=== PATIENT | female | born 1995 | race Caucasian/White ===

== ENCOUNTER 2025-03-30 18:51 | Emergency (ER) | payer OTHER, SELFPAY ==
--- NOTE | ~2025-03-30 | XR_ITS ---
CHEST RADIOGRAPH, PA AND LATERAL CLINICAL HISTORY: right lower rib pain . COMPARISON: None available TECHNIQUE: PA and lateral views of the chest. FINDINGS The cardiomediastinal silhouette is unremarkable. The lungs are clear. IMPRESSION: No focal infiltrate or effusion. Reviewed, dictated and finalized at location A.
--- NOTE | ~2025-03-30 | CT_ITS ---
CLINICAL INDICATION: Right upper quadrant pain and diarrhea COMPARISON: 04/28/2014. TECHNIQUE: Multiple contiguous axial images of the abdomen and pelvis were performed following the ad ministration of with 100 mL Omnipaque-350 intravenous contrast The dose-length product (DLP) was 492.80 mGy-cm. Automated exposure control and iterative reconstruction technique were employed. FINDINGS/OBSERVATIONS: Visualized lower thorax: The bilateral lung bases are clear. The heart is of normal size, without pericardial effusion. Small hiatal hernia is present. Liver: The liver demonstrates homogeneous enhancement and is not enlarged. Gallbladder and biliary system: The gallbladder is only minimally distended, and otherwise unremarkable. Pancreas: The pancreas enhances homogeneously without ductal dilatation. Spleen: The spleen enhances homogeneously and is not enlarged. Kidneys: 9 mm focus of decreased attenuation within the upper pole of the left kidney, not present on the previous examination performed more than 10 years earlier. This is too small to characterize on the current study for which dedicated ultrasound may be performe d (nonemergently) for confirmation of its benignity. If unable to visualize this area with ultrasound , contrast-enhanced MRI is recommended with renal mass protocol. The remainder of the bilateral kidneys otherwise enhance symmetrically without hydronephrosis or hank l calculi. Adrenal glands: Unremarkable. Gastrointestinal tract: Colonic diverticulosis without surrounding inflammatory change. Appendix: The air-filled appendix is of normal caliber (axial series, images 123 - 133) Vasculature: Unremarkable. Lymph nodes: No pathologically enlarged or morphologically suspicious lymph nodes within the retroperitoneum or at the root of the mesentery. Pelvic structures: The bladder is only minimally distended, limiting its evaluation The uterus is anteverted and anteflexed, and otherwise unremarkable. Body wall and musculoskeletal: Small fat-containing umbilical hernia. No significant degenerative disease within the lower thoracic or lumbosacral spine. No lower rib fracture identified. IMPRESSION: No abnormality is detected within the right upper quadrant to account for patient's pain. Interval development of a 9 mm focus of decreased attenuation within the upper pole of the left kidne y, not present on the previous study for which nonemergent focused ultrasound may be performed for co nfirmation of its benignity. If unable to visualize with ultrasound, contrast-enhanced MRI is suggested with renal mass protocol. Reviewed, dictated and finalized at location A. IMPRESSION: No abnormality is detected within the right upper quadrant to account for patie nt's pain. Interval development of a 9 mm focus of decreased attenuation within the upper pole of the left kidney, not present on the previous study for which nonemergen t focused ultrasound may be performed for confirmation of its benignity. If unable to visualize with ultrasound, contrast-enhanced MRI is suggested with renal mass protocol.
--- OUTSIDE RECORDS SUMMARY | 2025-03-30 18:53 | XMS_ITS | Continuity of Care Document ---
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 Name Role Phone Roger [facility] Unavailable Unavailabl e Allergies, Adverse Reactions, Alerts Substance Reaction Status Criticality No Known Allergies Active No Inform ation Medications Medication Instructions Dosage Effective Dates (start - stop) Status Comments TRI-SPRINTEC TABLETS 28S TAKE 1 TABLET BY MOUTH EVERY DAY - Active Ortho Tri-Cyclen (28) 0.18 mg(7)/0.215 mg(7)/0.25 mg(7)-35 mcg tablet take 1 tablet by oral route every day 1.00 tablet - No Longer Active Ortho Tri-Cyclen, may sub generic Procedures Procedure Date URINE TEST, BY VISUAL [facility] MPARISON METHODS REMOVAL OF INTRAUTERINE DEVICE (IUD) Jan PERIODIC COMPREHENSIVE PREVENTIVE MED RE E/M; ESTABLISHED PATIENT; 18-39 Alcohol and/or drug screening 4 1ST COMPRE PREV MED E/M NEW PT 18-39 Jun OFFICE/OUTPATIENT VISIT, EST Alcohol and/or drug screening 2 URINE TEST, BY VISUAL [facility] MPARISON METHODS Advance Directives Directive Yes / No Effective Date File Name No Information Encounters Encounter Description Practice Location Reason(s) For Visit Diagnoses Date Provider Providers Copied on Encounter [facility], [address], [place], [place], [id number] , [place] tel: [phone] [facility] No Information summer. [address], [place], [place], [address] , . tel: [phone] [facility], [address], [place], [place], [address] , tel: [phone] [facility] No Information summer. [address], [place], [place], [address] , [place]. tel: [phone] PERIODIC COMPREHENSIVE PREVENTIVE MED REE/M; ESTABLISHED PATIENT; 18-39 [facility], [address], [place], [place], [address] , tel: [phone] [facility] annual exam (chief complaint) hx (chief complaint) Body mass index (BMI) 33.0-33.9, adultEncounter for gynecological examination (general) (routine) without abnormal findingsEncounter for removal of intrauterine contraceptive deviceEncntr screen for infections w sexl mode of transmissEncounter for screening for HIVEncounter for initial prescription of contraceptive pillsEncounter for oth screening for malignant neoplasm of breastScreening for cervical cancerDietary counseling and surveillanceTobacco abuse counselingObesity, unspecifiedEncounte r for screening for other disorder summer. [address], [place], [place], [address] , . tel: [phone] Referring Provider: Shannon Duran, [address], [place], [address] . tel:[phone] 1ST COMPRE PREV MED E/M NEW PT 18-39 [facility], [address], [place], [place], [address] , [place] tel: [phone] [facility] [place] annual (chief complaint) Body mass index (BMI) 29.0-29.9, adultEncounter for routine rod drawer exam w/ abnormal findingUnspecified lump in the left breast, upper outer quadrantEncntr screen for infections w sexl mode of transmissScreening for cervical cancerOverweightEnc ounter for gynecological examination (general) (routine) without abnormal findingsEncounter for screening for other disorder Tammy-Ti Moon. [address], [place], [place], [address] , [place]. tel: [phone] Referring Provider: Sarai Munoz-May hardy, [address], [place], [address] . tel:[phone] Family History Family Member Type Diagnosis Age At Onset Father Problem stroke 39 Problem No family history of Cancer, breast Mother Problem Mental illness Problem No family history of Cancer, colon Problem No family history of Cancer, ovarian Payers Payer name Insurance type Covered republican ID Authoriza tiluis(s) [employer] [id number] Social History Type Description Quantity Date Captured Comments Alcohol Use Details Unknown Caffeine Use Details Unknown Tobacco Use Status No Information Smoking Status No Information Sex Female Sexual Orientation Straight or heterosexual Jun Gender Identity Female Chief Complaint And Reason For Visit No Information Reason For Referral Reason For Referral No Information Plan Of Treatment Date Type Action Status Referral Referred To: [facility] [address] [place] [address]
[address] Floor, [place], [phone] Ordered: Referrals: Mammography Screening and Diagnostic. [facility] Breast [facility]. Diagnostic testing Appointment date/timeframe: 09/02/2022 ordered Appointment Prince Jaramillo BOOKED Nutrition Recommendation Nutrition therap y completed Nutrition Recommendation Nutrition therap y completed History Of Present Illness Encounter Date Complaint History Of Prese nt Illness hx 29 y/o G0 here f or AnnualLMP amenorrheic with LNG-IUD, Last 06/2022 NIL, next due 06/2025 reports h/o abnormal with colpo and resolved on f/uH/o CT, desires testingSA, one male partner x 3 yearsMOC - LNG-IUD (05/2020), desires removals/p Gardasils/p COVID VaccineH/o Anxiety - no meds annual exam The client state s using IUD, Mirena for control. Patient's menses is absent. Negative for: breast discharge, breast lump(s) and breast pain. Positive for: breast self exam. Associated symptoms include anxiety and depression. Pertinent negatives include urinary incontinence, urinary urgency and vaginal discharge. Client does not take calcium. Client does not take Vitamin D. Client does take multivitamins. Client does not take Folic acid. The client does not use tobacco. The client does drink alcohol. annual 27 y/o G0 here f or new patient annual exam. C/o left lateral breast tenderness and palpable indistinct mass x 2 weeks. States tenderness has improved, but still self-palpates firmness in the area. Denies recent trauma. No skin change, no nipple d/c. Notes some LAD in right axilla which has improved over the past week. No significant family history of malignancy.LMP amenorrheic with LNG-IUD, notes occasional spotting particularly after IC on occasionLast pap ?1-2 years ago, believes to be normal, reports h/o abnormal with colpo and resolved on f/uH/o CTSA, one male partner x 3 yearsMOC - LNG-IUD (05/2020)s/p GardasilH/o Anxiety - no meds Functional Status Date Functional Assessmen t No Information Instructions Date Instruction Additional Infor elizabet Prescribed activity/ exercise education Related to Body mass index [BMI] 33.0-33.9, adult Reviewed breast self awareness R elated to Encounter for routine rod drawer exam w/ abnormal finding Increase fruits, veg etables and fiber in your diet Related to Encounter for routine rod drawer exam w/ abnormal finding Increase daily activity Related to Encounter for routine rod drawer exam w/ abnormal finding Discussed Nutrition and Physical Activity Related to Overweight Prescribed activity/ exercise education Related to Body mass index [BMI] 29.0-29.9, adult Assessments Type Assessment Date No Information Patient Care Teams Name Effective Dates (start - stop) Status Members No Information
[2025-03-30 19:00] VITALS: BP 148/85; PULSE 108; RESP 16; TEMP 36.3; O2SAT 100
[2025-03-30 19:43] LABS: Hematocrit 40.3 % (37.0-47.0); Hemoglobin 13.4 g/dL (12.0-15.0); Immature Granulocyte Percent A 0.3 % (0-0.5); Lymphocytes Absolute Auto 3.36 K/mm3 (0.9-3.2); Mean Corpuscular HGB Conc 33.3 g/dl (32-36); Mean Corpuscular Hemoglobin 28.7 pg (26-34); Mean Corpuscular Volume 86.3 fl (80-100); Nucleated Red Blood Cells Absolute Auto 0.000 K/mm3 (0.0-0.012); Nucleated Red Blood Cells Perc 0.0 % (0.0-0.2); Platelet Count Result 302 k/mm3 (150-375); Red Blood Count 4.67 M/mm3 (4.2-5.4); White Blood Count 8.8 K/mm3 (4.5-10.0)
--- NOTE | 2025-03-30 19:46 | ED.NAVMDI ---
HPI - Nausea/Vomiting/Diarrhea General Chief complaint: Nausea/Vomiting/Diarrhea Stated complaint: diarrhea x 3 weeks, Abd pain, N/V Time Seen by Provider: 03/30/25 19:24 History of Present Illness HPI Narrative: 30-year-old female presenting to the emergency department for subacute to chronic complaints including right upper quadrant pain intermittent for last 8 months as well as 3 weeks of nausea and loose watery diarrhea. She attributed to digestive issues but has not sought medical attention for this. She thought she may have had a gallstone past several months ago and that she has been having intermittent right upper quadrant pain since. Endorses subjective fever and chills today which is why she came to the emergency department. Patient has any chest pain or shortness of breath, no traumatic injuries. States that she seen a chiropractor for her right-sided upper quadrant pain and had a ?rib adjustments ?that made her feel better. No new medications and she has tried some probiotics but still having loose stools. She states that her stools are very loose and associated some burning. She states she has also been having worsening GERD symptoms for last week despite omeprazole therapy. Related Data Allergies Allergy/AdvReac Type Severity Reaction Status Date / Time No Known Allergies Allergy Unverified 03/30/25 19:05 Review of Systems Review of Systems: As reviewed above in HPI Exam Narrative: GENERAL: [Well-appearing, well-nourished, and in no acute distress.] HEAD: [Normocephalic, atraumatic.] EYES: [PERRLA and EOMI.] ENT: Nares clear, no rhinorrhea or epistaxis. Mucous membranes dry. NECK: Supple. CHEST: [Clear to auscultation. No respiratory distress.] HEART: [Regular rate and rhythm]. No murmur heard. [Normal peripheral pulses.] ABDOMEN: [Soft, nondistended], mildly reproducible pain in the right upper quadrant with palpation no signs of peritonitis or lower abdominal pain on palpation, [No rigidity or guarding] EXTREMITIES: Normal range of motion. [No edema.] SKIN: Warm, dry, no rash. NEURO: [No focal deficits]. Alert and oriented [x3.] PSYCH: [Normal mood and affect.] Course Vital Signs Vital signs: Vital Signs Temperature 36.3 C L 03/30/25 19:00 Pulse Rate 108 H 03/30/25 19:00 Respiratory Rate 16 03/30/25 19:00 Blood Pressure 148/85 H 03/30/25 19:00 Pulse Oximetry 100 03/30/25 19:00 Oxygen Delivery Room Air 03/30/25 19:00 Temperature 36.3 C L 03/30/25 19:00 Pulse Rate 83 03/31/25 00:04 Respiratory Rate 15 03/31/25 00:04 Blood Pressure 118/76 03/31/25 00:04 Pulse Oximetry 99 03/31/25 00:04 Oxygen Delivery Room Air 03/30/25 19:00 MDM - Nausea/Vomiting/Diarrhea MDM Narrative Medical decision making narrative: 30-year-old female presenting to the emergency department for subacute to chronic complaints including right upper quadrant pain intermittent for last 8 months as well as 3 weeks of nausea and loose watery diarrhea. She attributed to digestive issues but has not sought medical attention for this. She thought she may have had a gallstone past several months ago and that she has been having intermittent right upper quadrant pain since. Endorses subjective fever and chills today which is why she came to the emergency department. Patient has any chest pain or shortness of breath, no traumatic injuries. States that she seen a chiropractor for her right-sided upper quadrant pain and had a ?rib adjustments ?that made her feel better. No new medications and she has tried some probiotics but still having loose stools. She states that her stools are very loose and associated some burning. She states she has also been having worsening GERD symptoms for last week despite omeprazole therapy. Patient is mildly tachycardic but overall well-appearing not any acute distress. Minimally reproducible tenderness in the right upper quadrant near the gallbladder area but negative Magana sign. No signs of peritonitis. Mild dehydration on clinical exam. Given patient's subacute to chronic nature of symptoms going on for weeks to months unclear if there is any acute emergent concerns today but with her subjective fever and chills could be potential etiology such as intra-abdominal infection such as cholecystitis less likely cholangitis, hepatitis. Possibility of GERD, likely deficiencies, gastroenteritis, appendicitis or diverticulitis less likely. Right upper quadrant ultrasound laboratory studies were obtained, she was given Zofran, Bentyl and fluids and re-evaluated. Workup was reassuring. No leukocytosis or anemia. Normal platelet count. Normal electrolytes and renal function. Normal hepatic function. Normal lipase. Urinalysis negative for , negative for any signs of infection. Chest x-ray shows no infiltrates or effusion. CT scan shows no abnormality in the right upper quadrant, she has a left kidney upper pole foci that needs outpatient follow-up with ultrasound or MRI. Patient was made aware of this with instructions for outpatient follow-up with her PCP but not related to her symptomatology here today with no emergent concerns found on workup. Patient is hemodynamically stable, improved after symptom control medications here. Will be sent home with Bentyl and Zofran as needed and follow-up instructions with the GI doctor as well as her PCP regarding her CT finding. Medical Records Attestation: I reviewed the patient's medical records. Lab Data Attestation: I reviewed the patient's lab results. 03/30/25 19:38 03/30/25 19:38 Labs: Lab Results 03/30/25 03/30/25 03/30/25 Range/Units 19:38 20:30 20:38 WBC 8.8 (4.5-10.0) K/mm3 RBC 4.67 (4.2-5.4) M/mm3 Hgb 13.4 (12.0-15.0) g/dL Hct 40.3 (37.0-47.0) % MCV 86.3 (80-100) fl MCH 28.7 (26-34) pg MCHC 33.3 (32-36) g/dl RDW 12.4 (11.5-14.5) % Plt Count 302 (150-375) k/mm3 MPV 9.7 (7.4-10.4) fl Immature Gran % (Auto) 0.3 (0-0.5) % Neut % (Auto) 53.3 (45.5-73.1) % Lymph % (Auto) 38.3 (18.3-44.2) % Woodruff % (Auto) 6.2 (2.6-8.5) % Eos % (Auto) 1.4 (0-4.4) % Baso % (Auto) 0.5 (0.2-1.2) % Lymph # (Auto) 3.36 H (0.9-3.2) K/mm3 Woodruff # (Auto) 0.5 (0.1-0.6) K/mm3 Eos # (Auto) 0.1 (0-0.3) K/mm3 Baso # (Auto) 0.0 (0.0-0.1) K/mm3 Abs Immat Gran (auto) 0.03 (0.00-0.031) K/mm3 Absolute Neuts (auto) 4.7 (1.3-6.7) K/mm3 Absolute Nucleated RBC 0.000 (0.0-0.012) K/mm3 Nucleated RBC % 0.0 (0.0-0.2) % Sodium 137 (137-145) mmol/L Potassium 3.8 (3.4-5.0) mmol/L Chloride 102 (98-107) mmol/L Carbon Dioxide 24 (22-30) mmol/L Anion Gap 11 (4-12) mmol/L BUN 11 (7-17) mg/dL Creatinine 0.71 (0.7-1.0) mg/dL Estim Creat Clear Calc 102 ml/min Estimated GFR > 60 (59 - ) Glucose 92 (65-110) mg/dL Calcium 9.9 (8.4-10.2) mg/dL Total Bilirubin 0.5 (0.2-1.3) mg/dL AST 34 (14-36) U/L ALT 18 (6-35) U/L Alkaline Phosphatase 65 (38-126) U/L Total Protein 8.3 H (6.3-8.2) g/dL Albumin 4.8 (3.5-5.1) g/dL Lipase 186 (23-300) U/L Urine Color (Yellow) Urine Appearance (Clear) Urine pH (5.0-9.0) Ur Specific [place] (1.001-1.035) Urine Protein (Negative) mg/dL Urine Glucose (UA) (Negative) mg/dL Urine Ketones (Negative) mg/dL Ur Blood (Man) (Negative) Urine Nitrate (Negative) Urine Bilirubin (Negative) Urine Urobilinogen (<2.0) mg/dL Leukocyte Esterase Rfl (Negative) NATE/UL POC Urine HCG, Qual Negative (Negative) Urine Test Negative 03/30/25 Range/Units 20:39 WBC (4.5-10.0) K/mm3 RBC (4.2-5.4) M/mm3 Hgb (12.0-15.0) g/dL Hct (37.0-47.0) % MCV (80-100) fl MCH (26-34) pg MCHC (32-36) g/dl RDW (11.5-14.5) % Plt Count (150-375) k/mm3 MPV (7.4-10.4) fl Immature Gran % (Auto) (0-0.5) % Neut % (Auto) (45.5-73.1) % Lymph % (Auto) (18.3-44.2) % Woodruff % (Auto) (2.6-8.5) % Eos % (Auto) (0-4.4) % Baso % (Auto) (0.2-1.2) % Lymph # (Auto) (0.9-3.2) K/mm3 Woodruff # (Auto) (0.1-0.6) K/mm3 Eos # (Auto) (0-0.3) K/mm3 Baso # (Auto) (0.0-0.1) K/mm3 Abs Immat Gran (auto) (0.00-0.031) K/mm3 Absolute Neuts (auto) (1.3-6.7) K/mm3 Absolute Nucleated RBC (0.0-0.012) K/mm3 Nucleated RBC % (0.0-0.2) % Sodium (137-145) mmol/L Potassium (3.4-5.0) mmol/L Chloride (98-107) mmol/L Carbon Dioxide (22-30) mmol/L Anion Gap (4-12) mmol/L BUN (7-17) mg/dL Creatinine (0.7-1.0) mg/dL Estim Creat Clear Calc ml/min Estimated GFR (59 - ) Glucose (65-110) mg/dL Calcium (8.4-10.2) mg/dL Total Bilirubin (0.2-1.3) mg/dL AST (14-36) U/L ALT (6-35) U/L Alkaline Phosphatase (38-126) U/L Total Protein (6.3-8.2) g/dL Albumin (3.5-5.1) g/dL Lipase (23-300) U/L Urine Color Yellow (Yellow) Urine Appearance Clear (Clear) Urine pH 7.5 (5.0-9.0) Ur Specific [place] 1.017 (1.001-1.035) Urine Protein Negative (Negative) mg/dL Urine Glucose (UA) Negative (Negative) mg/dL Urine Ketones Trace H (Negative) mg/dL Ur Blood (Man) Negative (Negative) Urine Nitrate Negative (Negative) Urine Bilirubin Negative (Negative) Urine Urobilinogen 0.2 (<2.0) mg/dL Leukocyte Esterase Rfl Negative (Negative) NATE/UL POC Urine HCG, Qual (Negative) Urine Test Imaging Data Attestation: I personally reviewed and interpreted this imaging study as follows: My impression: Impressions Chest X-Ray 03/30/25 20:27 IMPRESSION: No focal infiltrate or effusion. Abdomen/Pelvis CT 03/30/25 22:48 IMPRESSION: No abnormality is detected within the right upper quadrant to account for patient's pain. Interval development of a 9 mm focus of decreased attenuation within the upper pole of the left kidney, not present on the previous study for which nonemergent focused ultrasound may be performed for confirmation of its benignity. If unable to visualize with ultrasound, contrast-enhanced MRI is suggested with renal mass protocol. Discharge Plan Discharge Clinical Impression: Nausea, vomiting, and diarrhea, Abnormal CT scan, kidney Patient Disposition: Home Condition: Stable Instructions: Antibiotic Form, Acute Nausea and Vomiting (ED) Additional Instructions: Your laboratory studies here were reassuring with no signs of active infection, electrolyte deficiencies or dehydration. Your CT scan shows nothing going on with your gallbladder and no acute GI pathology was identified. Your left kidney has a small area of decreased contrast uptake which is not related to anything going on with your symptoms here today and needs an outpatient follow-up with potential ultrasound or MRI on a nonemergent outpatient basis. Speak with your primary care provider during follow-up about this. We will refer you to a GI doctor for evaluation of your symptomatology however no acute urgent or emergent concerns were identified today. We will send you home with some medications that can help with symptoms in the meantime. Patient Language: Wallisian Prescriptions: New dicyclomine 20 mg tablet 20 mg PO TID PRN (Reason: abdominal pain) Qty: 20 0RF ondansetron 4 mg tablet,disintegrating 4 mg PO Q8H PRN (Reason: nausea and vomiting) Qty: 14 0RF Follow-up/Referrals: PHYSICIAN,CONTROL TOWER RADIO OPERATOR [Primary Care Provider] - Sergio Sauceda MD [Physician] - 1 Week (Chronic diarrhea) Time of Disposition: 23:45
[2025-03-30 19:54] LABS: Alanine Aminotransferase 18 U/L (6-35); Albumin Level 4.8 g/dL (3.5-5.1); Alkaline Phosphatase 65 U/L (38-126); Anion Gap 11 mmol/L (4-12); Aspartate Amino Transferase 34 U/L (14-36); Bilirubin,Total 0.5 mg/dL (0.2-1.3); Blood Urea Nitrogen 11 mg/dL (7-17); Calcium 9.9 mg/dL (8.4-10.2); Carbon Dioxide 24 mmol/L (22-30); Chloride 102 mmol/L (98-107); Estimated CRCL calculation 102 ml/min; Estimated Glomerular Filt Rate > 60; Glucose 92 mg/dL (65-110); Lipase 186 U/L (23-300); Potassium 3.8 mmol/L (3.4-5.0); Sodium 137 mmol/L (137-145); Total Protein 8.3 g/dL (6.3-8.2)
--- OUTSIDE RECORDS SUMMARY | 2025-03-30 19:54 | XMS_ITS | Continuity of Care Document ---
Author Organization [facility] Address [address] [place] [address] Phone Care Team Providers Care Dial Buffer Name Role Phone Roger [facility] Unavailable Unavailabl e Allergies, Adverse Reactions, Alerts [...] Encounter [facility], [address], [place], [place], [address] , [place] tel: [phone] [facility] No Information summer. [address], [place], [place], [address] , . tel: [phone] [facility], [address], [place], [place], [address] , tel: [phone] [facility] [place] No Information summer. [address], [place], [place], [address] , [place]. tel: [phone] PERIODIC COMPREHENSIVE PREVENTIVE MED REE/M; ESTABLISHED PATIENT; 18-39 [facility], [address], [place], [place], [address] , tel: [phone] [facility] annual exam (chief complaint) [...] for other disorder summer. [address], [place], [place], [address] , . tel: [phone] Referring Provider: Shannon Duran, [address], [place], [address] . tel:[phone] 1ST COMPRE PREV MED E/M NEW PT 18-39 [facility], [address], [place], [place], [address] , [place] tel: [phone] [facility] [place] annual (chief complaint) Body mass index (BMI) 29.0-29.9, adultEncounter for routine hotel breakfast attendant exam w/ abnormal findingUnspecified lump in the left breast, upper outer quadrantEncntr screen for infections w sexl mode of transmissScreening for cervical cancerOverweightEnc ounter for gynecological examination (general) (routine) without abnormal findingsEncounter for screening for other disorder Tammy-Ti Moon. [address], [place], [place], [address] , [place]. tel: [phone] Referring Provider: Sarai Munoz-May hardy, [address], [place], [address] . tel:[phone] Family History Family Member Type Diagnosis Age At Onset Father Problem stroke 39 Problem No family history of Cancer, breast Mother Problem Mental illness Problem No family history of Cancer, colon Problem No family history of Cancer, ovarian Payers Payer name Insurance type Covered libertarian ID Authoriza tiluis(s) [employer] [id number] Social History Type Description Quantity Date Captured Comments Alcohol Use Details Unknown Caffeine Use Details Unknown Tobacco Use Status No Information Smoking Status No Information Sex Female Sexual Orientation Straight or heterosexual Jun Gender Identity Female Chief Complaint And Reason For Visit No Information Reason For Referral Reason For Referral No Information Plan Of Treatment Date Type Action Status Referral Referred To: [facility] [address] [place] [address]
[address], [place], [phone] Ordered: Referrals: Mammography Screening and Diagnostic. [facility]. Diagnostic testing Appointment [...] to Body mass index [BMI] 33.0-33.9, adult Discussed Nutrition and Physical Activity Related to Overweight Increase daily activity Related to Encounter for routine hotel breakfast attendant exam w/ abnormal finding Increase fruits, veg etables and fiber in your diet Related to Encounter for routine hotel breakfast attendant exam w/ abnormal finding Reviewed breast self awareness R elated to Encounter for routine hotel breakfast attendant exam w/ abnormal finding Prescribed activity/ exercise education Related to Body mass index [BMI] 29.0-29.9, adult Assessments Type Assessment Date No Information Patient Care Teams Name Effective Dates (start - stop) Status Members No Information
[2025-03-30] MEDS: DICYCLOMINE HCL 10 MG CAPSULE 20 MG PO (19:58)
[2025-03-30] MEDS: ONDANSETRON INJ 4 MG/2 ML VIAL IV PUSH (19:58)
[2025-03-30] MEDS: LACTATED RINGERS 1,000 ML 999 ML IV CONT (20:01)
[2025-03-30 20:47] LABS: Add Urine Microscopic? NO; Appearance Urine Clear (Clear); Glucose Urine UA Negative (Negative); Leukocyte Esterase Ur Negative LEU/UL (Negative); Nitrate Urine Negative (Negative); Specific Grav Ur 1.017 (1.001-1.035)
[2025-03-30 21:21] LABS: Pregnancy On Board Control Positive
[2025-03-30] MEDS: ACETAMINOPHEN 500 MG TABLET 1000 MG PO (22:08)
[2025-03-30 22:09] VITALS: BP 121/70; PULSE 78; RESP 12; O2SAT 100
[2025-03-30 23:13] LABS: BEDSIDEPREGUCG Negative (Negative)
[2025-03-30 23:59] VITALS: BP 118/76; PULSE 83; RESP 15; O2SAT 99
[2025-03-31 00:04] VITALS: BP 118/76; PULSE 83; RESP 15; O2SAT 99
== END 2025-03-31 00:14 | disposition home or self-care (01) ==
PROVIDERS: Emergency Provider Student in an Organized Health Care Education/Training Program
DX: R11.2 Nausea with vomiting, unspecified (principal); R19.7 Diarrhea, unspecified; R94.4 Abnormal results of kidney function studies
CPT/HCPCS: 36415; 71046; 74177; 80053; 81003; 81025; 83690; 85025; 96361; 96374; 99284; A9270; J2405; J7120; Q9967